=== PATIENT | male | born 1935 | race Caucasian/White ===

== ENCOUNTER 2020-08-17 08:02 | Day surgery (SDC) | payer MEDICARE ==
[2020-08-11 12:50] LABS: BASOPHILS % (AUTO) 1.1 % (0.0-5.0); HEMATOCRIT 39.2 % (42-54); LYMPHOCYTES % (AUTO) 21.7 % (21.0-51.0); MEAN CORPUSCULAR HEMOGLOBIN 29.9 pg (27.0-33.0); MEAN CORPUSCULAR HGB CONC 32.1 g/dL (32.0-36.0); MEAN CORPUSCULAR VOLUME 93.1 fL (79-99); MONOCYTES % (AUTO) 12.2 % (3.0-13.0); NEUTROPHILS % (AUTO) 61.7 % (40.0-77.0); PLATELET COUNT (AUTO) 193 K/uL (130-400); RED BLOOD CELL COUNT(AUTO) 4.21 MIL/uL (4.50-6.20); RED CELL DISTRIBUTION WIDTH 13.7 % (11.0-15.5); WHITE BLOOD COUNT (AUTO) 3.7 K/uL (4.8-10.8)
[2020-08-11 13:04] LABS: CREATININE 1.2 mg/dL (0.5-1.5); POTASSIUM 4.6 mmol/L (3.5-5.1)
[2020-08-11 13:07] LABS: INR 1.06 (0.85-1.15); PARTIAL THROMBOPLASTIN TIME 27.6 SEC (26.3-35.5); PROTHROMBIN TIME 11.4 SEC (9.6-11.6)
[2020-08-16 13:06] VITALS: BP 124/64
[2020-08-17] VITALS (17 sets, daily range): BP systolic 118–135; BP diastolic 50–71
[~2020-08-17] VITALS: Ht 167.6 cm; Wt 68.9 kg
[~2020-08-17 08:02] MED LIST: BICA50TA7 PO; CEFAZOLIN SODIUM 1 GM VIAL IVP SCH; CHOL500045 PO; CYAN250010 PO; MULT-1289 PO
[2020-08-17] MEDS ORDERED: LACTATED RINGERS 1000ML 1,000 ML IV ONE (08:38)
[2020-08-17] MEDS ORDERED: BUPIVACAINE/PF 0.25% 10ML VIAL IJ ONE (10:01)
[2020-08-17] MEDS ORDERED: SUCCINYLCHOLINE CHLORIDE 20 MG/ML 10 ML VIAL ONE ×2 (11:07→11:09)
[2020-08-17] MEDS ORDERED: LIDOCAINE PF 100MG/5ML (2%) SYRINGE 5ML ONE ×2 (11:07→11:09)
[2020-08-17] MEDS ORDERED: DEXAMETHASONE SOD PHOSPHATE 10MG/ML 1ML VIAL ONE (11:07)
[2020-08-17] MEDS ORDERED: PROPOFOL 10 MG/ML 20ML VIAL IV ONE (11:08)
[2020-08-17] MEDS ORDERED: FENTANYL CITRATE PF 50 MCG/1 ML 2ML VIAL ONE (11:08)
[2020-08-17] MEDS ORDERED: GLYCOPYRROLATE 1 MG/5 ML SYRINGE ONE (11:08)
[2020-08-17] MEDS ORDERED: NEOSTIGMINE 5MG/5ML SYR IV ONE (11:08)
[2020-08-17] MEDS ORDERED: ROCURONIUM 10MG/1ML SYR 10 MG/ML ML ONE (11:08)
[2020-08-17] MEDS ORDERED: BACITRACIN 28.4 GM OINT TP ONE (11:49)
== END 2020-08-17 13:48 | disposition home or self-care (01) ==
LOC: DAH 08:02
PROVIDERS: ATTEND Urology
DX: N48.89 Other specified disorders of penis (principal); I10 Essential (primary) hypertension; I25.10 Atherosclerotic heart disease of native coronary artery without angina pectoris; Z98.62 Peripheral vascular angioplasty status; Z79.01 Long term (current) use of anticoagulants; Z79.899 Other long term (current) drug therapy; Z20.828 Contact with and (suspected) exposure to other viral communicable diseases
CPT/HCPCS: 36415; 54161; 71045; 80048; 85025; 85610; 85730; 88304; 88313; 88341; 88342; 93005; A4215; A4221; A4222; A4223; A4600; A4606; A4663; A6260; C9803; J0330 ×2; J0690; J1100; J2001 ×2; J2704; J2710; J3490 ×2; J7120; U0003; J3010